=== PATIENT | female | born 1980 | race Caucasian/White ===

== ENCOUNTER 2019-06-08 03:49 | Emergency (ER) | payer OTHER ==
[~2019-06-08] VITALS: Ht 165.1 cm; Wt 127.0 kg
[~2019-06-08 03:49] MED LIST: AUGMENTIN 875-1 EACH PO; BIRTH CONTROL; CELEXA40 MG PO; IBUPROFEN 800800 MG PO; SPIRONOLACTONE25 M1 PO; ZOFRAN4 MG PO
[2019-06-08] MEDS ORDERED: METFORMIN HCL500 M3 PO (03:59)
[2019-06-08] MEDS ORDERED: ZYRTEC10 M5 PO (04:00)
[2019-06-08 04:20] LABS: INFLUENZA A ANTIGEN Negative (Negative)
[2019-06-08] MEDS ORDERED: TAMIFLU75 MG PO (04:43)
[2019-06-08] MEDS ORDERED: ZOFRAN ODT4 MG PO (04:43)
[2019-06-08 04:51] VITALS: BP 137/83
== END 2019-06-08 04:51 | disposition home or self-care (01) ==
LOC: M.ERS 03:49
PROVIDERS: Emergency Medicine
DX: J10.1 Influenza due to other identified influenza virus with other respiratory manifestations (principal); F32.9 Major depressive disorder, single episode, unspecified; Z90.49 Acquired absence of other specified parts of digestive tract

== ENCOUNTER 2020-03-05 08:03 | Emergency (ER) | payer OTHER ==
[~2020-03-05] VITALS: Ht 165.1 cm; Wt 127.0 kg
[~2020-03-05 08:03] MED LIST changes: +METFORMIN HCL500 M3 PO; +TAMIFLU75 MG PO; +ZOFRAN ODT4 MG PO; +ZYRTEC10 M5 PO
[2020-03-05] MEDS ORDERED: PROZAC10 M1 PO (08:13)
[2020-03-05] MEDS ORDERED: NORCO 5-325 TA1 EAC2 PO (08:57)
[2020-03-05 09:09] VITALS: BP 129/95
== END 2020-03-05 09:09 | disposition home or self-care (01) ==
LOC: M.ERS 08:03
DX: S62.625A Displaced fracture of middle phalanx of left ring finger, initial encounter for closed fracture (principal); Z90.49 Acquired absence of other specified parts of digestive tract; Z87.01 Personal history of pneumonia (recurrent); W23.0XXA Caught, crushed, jammed, or pinched between moving objects, initial encounter; Y93.K1 Activity, walking an animal; Y92.89 Other specified places as the place of occurrence of the external cause; Y99.8 Other external cause status